=== PATIENT | male | born 1975 | race Caucasian/White ===

== ENCOUNTER 2019-03-16 18:26 | Emergency (ER) | payer BC ==
[~2019-03-16] VITALS: Ht 188 cm; Wt 98.9 kg
[2019-03-16 18:55] VITALS: Ht 188 cm; Wt 98.9 kg
[2019-03-16 20:46] VITALS: BP 147/81
== END 2019-03-16 20:46 | disposition home or self-care (01) ==
LOC: ED 18:26
DX: S86.912A Strain of unspecified muscle(s) and tendon(s) at lower leg level, left leg, initial encounter (principal); Z88.0 Allergy status to penicillin; W18.30XA Fall on same level, unspecified, initial encounter; Y93.67 Activity, basketball; Y92.89 Other specified places as the place of occurrence of the external cause; Y99.8 Other external cause status
CPT/HCPCS: J1885

== ENCOUNTER 2019-04-16 14:47 | Emergency (ER) | payer BC ==
[~2019-04-16] VITALS: Ht 185.4 cm; Wt 97.5 kg
[2019-04-16 14:52] VITALS: Ht 185.4 cm; Wt 97.5 kg
[2019-04-16 15:32] LABS: BASOPHIL % 0.3 % (0-2); RED CELL DISTRIBUTION WIDTH 12.5 % (11.5-14.5)
[2019-04-16 15:45] LABS: PLATELET COUNT 428 x10^3mcL (130-400)
[2019-04-16 15:47] LABS: CARBON DIOXIDE 32.2 mmol/L (21-32); CHLORIDE SERUM 104 mmol/L (98-107); CREATININE SERUM 0.8 mg/dL (0.7-1.3); GFR1 > 60 mL/min; GLUCOSE SERUM 94 mg/dL (74-106); POTASSIUM SERUM 3.7 mmol/L (3.5-5.1); SODIUM SERUM 140 mmol/L (136-145)
[2019-04-16 15:52] LABS: ALBUMIN 3.8 g/dL (3.4-5.0); ALKALINE PHOSPHATASE 73 U/L (46-116); ALT/SGPT 37 U/L (16-63); AST/SGOT 22 U/L (15-37); BILIRUBIN TOTAL 0.3 mg/dL (0.20-1.00); TOTAL PROTEIN, SERUM 7.6 g/dL (6.4-8.2)
[2019-04-16 17:21] VITALS: BP 134/75
== END 2019-04-16 17:21 | disposition home or self-care (01) ==
LOC: ED 14:47
PROVIDERS: Student in an Organized Health Care Education/Training Program
DX: I82.402 Acute embolism and thrombosis of unspecified deep veins of left lower extremity (principal)
CPT/HCPCS: 36415; Q0092